=== PATIENT | male | born 1955 | race Caucasian/White ===

== ENCOUNTER 2019-07-02 15:22 | Inpatient (IN) ==
[2019-07-02 17:24] LABS: Basophils # 0.1 K/mcL (0.0-0.2); Basophils % 0.7 %; Eosinophils # 0.3 K/mcL (0.0-0.6); Eosinophils % 3.3 %; Hematocrit 38.1 % (37.5-50.1); Hemoglobin 12.8 g/dL (12.9-16.9); Immature Granulocytes % 0.3 % (0-4); Lymphocytes # 1.3 K/mcL (0.6-4.6); Lymphocytes % 14.6 %; Mean Corpuscular HGB Conc 33.6 g/dL (31.6-35.5); Mean Corpuscular Hemoglobin 30.5 pg (28.0-33.3); Mean Corpuscular Volume 90.9 fL (83.0-100.0); Mean Platelet Volume 9.7 fL (9.4-12.4); Monocytes # 0.6 K/mcL (0.0-1.3); Monocytes % 6.6 %; Neutrophils # 6.5 K/mcL (1.6-8.9); Platelet Count 273 K/mcL (140-400); Red Blood Count 4.19 M/mcL (4.19-5.50); Red Cell Distribution Width 14.3 % (11.5-14.5); Segmented Neutrophils % 74.5 %; White Blood Count 8.7 K/mcL (4.3-11.1)
[2019-07-02] MEDS ORDERED: Naloxone 0.4 MG/ML INJ IVP PRN (17:42)
[2019-07-02 17:45] LABS: Albumin/Globulin Ratio 1.4 (1.1-2.2); Bilirubin,Total 0.4 mg/dL (0.3-1.0); Calcium 9.2 mg/dL (8.6-10.3); Globulin 2.9 g/dL (2.4-3.5); Potassium 4.7 mEq/L (3.5-5.1); Total Protein 6.9 g/dL (6.4-8.9)
[2019-07-02] MEDS ORDERED: hydrOXYzine pamoate 25 MG CAPSULE PO PRN (18:08)
[2019-07-02] MEDS: *HR* Heparin 5,000 UNIT/ML VIAL SQ SCH (19:39)
[2019-07-02] MEDS: Gabapentin 300 MG CAPSULE PO SCH (21:23)
[2019-07-02] MEDS: *HR* OxyCODONE/APAP 5/325 TABLET PO PRN (21:46)
[2019-07-02] MEDS: Lisinopril 20 MG TABLET PO SCH (21:46)
[2019-07-03] MEDS: *HR* Heparin 5,000 UNIT/ML VIAL SQ SCH ×2 (06:04→17:38)
[2019-07-03] MEDS: *HR* OxyCODONE/APAP 5/325 TABLET PO PRN ×3 (06:04→18:46)
[2019-07-03 07:01] LABS: Basophils # 0.1 K/mcL (0.0-0.2); Basophils % 0.8 %; Eosinophils # 0.2 K/mcL (0.0-0.6); Eosinophils % 3.2 %; Hematocrit 34.7 % (37.5-50.1); Hemoglobin 11.7 g/dL (12.9-16.9); Immature Granulocytes % 0.3 % (0-4); Lymphocytes # 1.8 K/mcL (0.6-4.6); Lymphocytes % 24.3 %; Mean Corpuscular HGB Conc 33.7 g/dL (31.6-35.5); Mean Corpuscular Hemoglobin 30.1 pg (28.0-33.3); Mean Corpuscular Volume 89.2 fL (83.0-100.0); Mean Platelet Volume 9.8 fL (9.4-12.4); Monocytes % 12.7 %; Neutrophils # 4.4 K/mcL (1.6-8.9); Platelet Count 257 K/mcL (140-400); Red Blood Count 3.89 M/mcL (4.19-5.50); Red Cell Distribution Width 14.1 % (11.5-14.5); Segmented Neutrophils % 58.7 %; White Blood Count 7.5 K/mcL (4.3-11.1)
[2019-07-03 07:29] LABS: Calcium 8.7 mg/dL (8.6-10.3); Potassium 4.3 mEq/L (3.5-5.1)
[2019-07-03] MEDS: Gabapentin 300 MG CAPSULE PO SCH ×3 (08:28→21:24)
[2019-07-03] MEDS: hydroCHLOROthiazide 25 MG TABLET PO SCH (08:30)
[2019-07-03] MEDS: Loratadine 10 MG TABLET PO SCH (08:30)
[2019-07-03] MEDS: Aspirin Enteric Coated 81 MG Tablet PO SCH (08:30)
[2019-07-03] MEDS: Lisinopril 20 MG TABLET PO SCH ×2 (08:30→21:24)
[2019-07-03] MEDS: Cyanocobalamin (B-12) 1,000 MCG TABLET PO SCH (08:31)
[2019-07-03] MEDS: amLODIPine 5 MG TABLET PO SCH (11:46)
[2019-07-03] MEDS: BuPROPion XL (24 HR) 150 MG TABLET PO SCH (17:38)
[2019-07-03] MEDS: traZODone 50 MG TABLET PO PRN (21:24)
[2019-07-04] MEDS: *HR* OxyCODONE/APAP 5/325 TABLET PO PRN ×4 (01:35→21:31)
[2019-07-04 04:10] LABS: Hematocrit 33.8 % (37.5-50.1); Hemoglobin 11.5 g/dL (12.9-16.9); Mean Corpuscular Hemoglobin 30.5 pg (28.0-33.3); Mean Corpuscular Volume 89.7 fL (83.0-100.0); Platelet Count 231 K/mcL (140-400); Red Blood Count 3.77 M/mcL (4.19-5.50); Red Cell Distribution Width 13.8 % (11.5-14.5); White Blood Count 8.1 K/mcL (4.3-11.1)
[2019-07-04 04:16] LABS: BUN/Creatinine Ratio 19 (6-26); Blood Urea Nitrogen 25 mg/dL (8-23); Calcium 8.5 mg/dL (8.6-10.3); Carbon Dioxide 22 mEq/L (23-29); Chloride 105 mEq/L (98-107); Glucose 111 mg/dL (70-105); Osmolality,Calculated 287 (280-300); Sodium 136 mEq/L (136-145); eGFR For African Americans > 60 (> 60); eGFR For Non-African Americans 56 (> 60)
[2019-07-04] MEDS: *HR* Heparin 5,000 UNIT/ML VIAL SQ SCH ×2 (06:38→17:25)
[2019-07-04] MEDS: Lisinopril 20 MG TABLET PO SCH ×2 (09:43→20:57)
[2019-07-04] MEDS: hydroCHLOROthiazide 25 MG TABLET PO SCH (09:44)
[2019-07-04] MEDS: Gabapentin 300 MG CAPSULE PO SCH ×3 (09:44→20:58)
[2019-07-04] MEDS: Cyanocobalamin (B-12) 1,000 MCG TABLET PO SCH (09:44)
[2019-07-04] MEDS: Aspirin Enteric Coated 81 MG Tablet PO SCH (09:44)
[2019-07-04] MEDS: Loratadine 10 MG TABLET PO SCH (09:44)
[2019-07-04] MEDS: amLODIPine 5 MG TABLET PO SCH (09:44)
[2019-07-04] MEDS: BuPROPion XL (24 HR) 150 MG TABLET PO SCH ×2 (09:45→17:27)
[2019-07-04] MEDS: traZODone 50 MG TABLET PO PRN (20:58)
[2019-07-05] MEDS ORDERED: 0.9 % Sodium Chloride 500 ML IV ONE (00:11)
[2019-07-05] MEDS ORDERED: 0.9 % Sodium Chloride 500 ML IVC ONE (02:29)
[2019-07-05] MEDS ORDERED: Acetaminophen 325 MG TABLET PO PRN (04:01)
[2019-07-05] MEDS: *HR* Heparin 5,000 UNIT/ML VIAL SQ SCH ×2 (05:10→17:20)
[2019-07-05 05:46] LABS: Calcium 8.3 mg/dL (8.6-10.3); Potassium 4.1 mEq/L (3.5-5.1)
[2019-07-05] MEDS: Lisinopril 20 MG TABLET PO SCH ×2 (09:13→21:27)
[2019-07-05] MEDS: Aspirin Enteric Coated 81 MG Tablet PO SCH (09:14)
[2019-07-05] MEDS: Gabapentin 300 MG CAPSULE PO SCH ×3 (09:14→21:26)
[2019-07-05] MEDS: Cyanocobalamin (B-12) 1,000 MCG TABLET PO SCH (09:14)
[2019-07-05] MEDS: Loratadine 10 MG TABLET PO SCH (09:14)
[2019-07-05] MEDS: BuPROPion XL (24 HR) 150 MG TABLET PO SCH ×2 (09:15→17:20)
[2019-07-05] MEDS: amLODIPine 5 MG TABLET PO SCH (09:15)
[2019-07-05] MEDS: hydroCHLOROthiazide 25 MG TABLET PO SCH (09:15)
[2019-07-05] MEDS: *HR* OxyCODONE/APAP 5/325 TABLET PO PRN ×2 (12:08→21:26)
[2019-07-06] MEDS: traZODone 50 MG TABLET PO PRN (00:31)
[2019-07-06] MEDS: *HR* Heparin 5,000 UNIT/ML VIAL SQ SCH ×2 (05:20→15:44)
[2019-07-06 07:09] LABS: BUN/Creatinine Ratio 27 (6-26); Blood Urea Nitrogen 37 mg/dL (8-23); Calcium 8.5 mg/dL (8.6-10.3); Carbon Dioxide 23 mEq/L (23-29); Chloride 102 mEq/L (98-107); Glucose 82 mg/dL (70-105); Osmolality,Calculated 292 (280-300); Sodium 137 mEq/L (136-145); eGFR For African Americans > 60 (> 60); eGFR For Non-African Americans 53 (> 60)
[2019-07-06] MEDS: Aspirin Enteric Coated 81 MG Tablet PO SCH (09:39)
[2019-07-06] MEDS: hydroCHLOROthiazide 25 MG TABLET PO SCH (09:39)
[2019-07-06] MEDS: Loratadine 10 MG TABLET PO SCH (09:39)
[2019-07-06] MEDS: Cyanocobalamin (B-12) 1,000 MCG TABLET PO SCH (09:40)
[2019-07-06] MEDS: BuPROPion XL (24 HR) 150 MG TABLET PO SCH ×2 (09:40→18:45)
[2019-07-06] MEDS: Gabapentin 300 MG CAPSULE PO SCH ×3 (09:40→21:35)
[2019-07-06] MEDS: amLODIPine 5 MG TABLET PO SCH (09:40)
[2019-07-06] MEDS: Lisinopril 20 MG TABLET PO SCH (09:40)
[2019-07-06] MEDS: *HR* OxyCODONE/APAP 5/325 TABLET PO PRN ×2 (09:45→19:34)
[2019-07-07] MEDS: traZODone 50 MG TABLET PO PRN (01:12)
[2019-07-07 05:01] LABS: Hematocrit 33.8 % (37.5-50.1); Hemoglobin 11.4 g/dL (12.9-16.9); Mean Corpuscular HGB Conc 33.7 g/dL (31.6-35.5); Mean Corpuscular Hemoglobin 30.3 pg (28.0-33.3); Mean Corpuscular Volume 89.9 fL (83.0-100.0); Mean Platelet Volume 9.6 fL (9.4-12.4); Platelet Count 250 K/mcL (140-400); Red Blood Count 3.76 M/mcL (4.19-5.50); Red Cell Distribution Width 13.8 % (11.5-14.5); White Blood Count 7.6 K/mcL (4.3-11.1)
[2019-07-07 05:25] LABS: BUN/Creatinine Ratio 32 (6-26); Blood Urea Nitrogen 46 mg/dL (8-23); Calcium 8.6 mg/dL (8.6-10.3); Carbon Dioxide 22 mEq/L (23-29); Chloride 105 mEq/L (98-107); Glucose 89 mg/dL (70-105); Osmolality,Calculated 303 (280-300); Potassium 4.3 mEq/L (3.5-5.1); Sodium 141 mEq/L (136-145); eGFR For African Americans > 60 (> 60); eGFR For Non-African Americans 50 (> 60)
[2019-07-07] MEDS: *HR* Heparin 5,000 UNIT/ML VIAL SQ SCH (05:25)
[2019-07-07] MEDS: *HR* OxyCODONE/APAP 5/325 TABLET PO PRN ×2 (05:30→11:42)
[2019-07-07] MEDS: hydroCHLOROthiazide 25 MG TABLET PO SCH (08:39)
[2019-07-07] MEDS: Cyanocobalamin (B-12) 1,000 MCG TABLET PO SCH (08:39)
[2019-07-07] MEDS: Gabapentin 300 MG CAPSULE PO SCH (08:39)
[2019-07-07] MEDS: Aspirin Enteric Coated 81 MG Tablet PO SCH (08:39)
[2019-07-07] MEDS: BuPROPion XL (24 HR) 150 MG TABLET PO SCH (08:39)
[2019-07-07] MEDS: amLODIPine 5 MG TABLET PO SCH (08:40)
[2019-07-07] MEDS: Loratadine 10 MG TABLET PO SCH (08:40)
[2019-07-07] MEDS ORDERED: Lisinopril 20 MG TABLET PO SCH (09:00)
[2019-07-07 11:10] VITALS: BP 103/70
[2019-07-07] MEDS ORDERED: *HR* OxyCODONE/APAP 5/325 TABLET PO PRN (13:54)
== END 2019-07-07 16:53 | DRG 563 ==
LOC: 2NENU 15:22 → EMEROOARM 15:22 → SUATTDRO 18:22 → 2NENU 19:46
PROVIDERS: ADMIT Internal Medicine; ATTEND Internal Medicine

== ENCOUNTER 2022-01-16 18:48 | Inpatient (IN) ==
[2022-01-16 20:48] LABS: Basophils % 0.6 %; Eosinophils # 0.3 K/mcL (0.0-0.6); Eosinophils % 4.3 %; Hematocrit 33.2 % (37.5-50.1); Hemoglobin 10.4 g/dL (12.9-16.9); Immature Granulocytes % 0.2 % (0-4); Lymphocytes # 2.4 K/mcL (0.6-4.6); Lymphocytes % 36.2 %; Mean Corpuscular HGB Conc 31.3 g/dL (31.6-35.5); Mean Corpuscular Hemoglobin 28.7 pg (28.0-33.3); Mean Corpuscular Volume 91.5 fL (83.0-100.0); Mean Platelet Volume 9.6 fL (9.4-12.4); Monocytes # 0.9 K/mcL (0.0-1.3); Monocytes % 13.7 %; Platelet Count 193 K/mcL (140-400); Red Blood Count 3.63 M/mcL (4.19-5.50); Red Cell Distribution Width 15.9 % (11.5-14.5); White Blood Count 6.6 K/mcL (4.3-11.1)
[2022-01-16 21:08] LABS: BUN/Creatinine Ratio 15 (6-26); Blood Urea Nitrogen 18 mg/dL (8-23); Calcium 8.7 mg/dL (8.6-10.3); Carbon Dioxide 21 mEq/L (23-29); Chloride 110 mEq/L (98-107); Glucose 82 mg/dL (70-105); Osmolality,Calculated 287 (280-300); Potassium 4.1 mEq/L (3.5-5.1); Sodium 138 mEq/L (136-145); Troponin I < 0.03 ng/mL (< 0.04); eGFR For African Americans > 60 (> 60); eGFR For Non-African Americans 59 (> 60)
[2022-01-16 21:12] LABS: Platelet Estimate Normal (Normal); Reactive Lymphocytes Present (Not Present)
[2022-01-16 21:15] LABS: Alanine Aminotransferase 12 Units/L (7-52); Albumin 3.9 g/dL (3.5-5.7); Albumin/Globulin Ratio 1.5 (1.1-2.2); Alkaline Phosphatase 94 Units/L (34-104); Aspartate Amino Transferase 22 Units/L (13-39); Bilirubin,Direct 0.1 mg/dL (0.0-0.2); Bilirubin,Indirect 0.3 mg/dL (0.0-1.0); Bilirubin,Total 0.4 mg/dL (0.3-1.0); Globulin 2.6 g/dL (2.4-3.5); Lipase 18 Units/L (11-82); Total Protein 6.5 g/dL (6.4-8.9)
[2022-01-16 21:56] LABS: Magnesium 1.8 mg/dL (1.6-2.6)
[2022-01-16] MEDS ORDERED: Lidocaine 1% 20 ML MDV INFILT ONE (22:06)
[2022-01-16 22:09] LABS: Thyroid Stimulating Hormone 10.063 mcIU/mL (0.340-5.600)
[2022-01-17] MEDS ORDERED: Furosemide 20 MG/2 ML VIAL IVP ONE (00:19)
[2022-01-17] MEDS ORDERED: *HR* Heparin 5,000 UNIT/ML VIAL IVP PRN ×2 (01:53)
[2022-01-17] MEDS ORDERED: *HR* Heparin 5,000 UNIT/ML VIAL IVP ONE (01:53)
[2022-01-17] MEDS ORDERED: Heparin 25,000UNIT/250ML 1/2NS 25,000 UNIT/250 ML IV.SOLN IVC SCH (02:00)
[2022-01-17 02:03] LABS: Adenovirus Not Detected (Not Detect); Bordetella Pertussis Not Detected (Not Detect); Chlamydophila pneumoniae Not Detected (Not Detect); Coronavirus 229E Not Detected (Not Detect); Coronavirus HKU1 Not Detected (Not Detect); Coronavirus NL63 Not Detected (Not Detect); Coronavirus OC43 Not Detected (Not Detect); Human Metapneumovirus Not Detected (Not Detect); Human Rhinovirus/Enterovirus Not Detected (Not Detect); Influenza A Subtype 2009 H1 Not Detected (Not Detect); Influenza B Not Detected (Not Detect); Mycoplasma pneumoniae Not Detected (Not Detect); Parainfluenza Virus 1 Not Detected (Not Detect); Parainfluenza Virus 2 Not Detected (Not Detect); Parainfluenza Virus 3 Not Detected (Not Detect); Parainfluenza Virus 4 Not Detected (Not Detect); Respiratory Syncytial Virus Not Detected (Not Detect); SARS-CoV-2 Not Detected (Not Detect)
[2022-01-17] MEDS ORDERED: Ondansetron 4 MG/2 ML VIAL IVP PRN (02:06)
[2022-01-17] MEDS ORDERED: Naloxone 0.4 MG/ML INJ IVP PRN (02:06)
[2022-01-17] MEDS ORDERED: Perflutren Lipid Microsphere 1.3 ML in 0.9 % Sodium Chloride 8.7 ML IVP PRN (02:22)
[2022-01-17] MEDS: Acetaminophen 325 MG TABLET PO PRN (03:54)
[2022-01-17 04:30] LABS: Bilirubin,Urine Negative (Negative); Blood,Urine Negative (Negative); Clarity,Urine Clear (Clear); Color,Urine Colorless (Yellow); Glucose,Urine (UA) Normal (Normal); Ketones,Urine Negative (Negative); Leukocyte Esterase,Urine Negative (Negative); Nitrite,Urine Negative (Negative); Protein,Urine Negative (Neg-Trace); Specific Gravity,Urine 1.007 (1.010-1.025); Urobilinogen,Urine Normal (Normal)
[2022-01-17 06:03] LABS: Hematocrit 34.6 % (37.5-50.1); Hemoglobin 10.8 g/dL (12.9-16.9); Mean Corpuscular HGB Conc 31.2 g/dL (31.6-35.5); Mean Corpuscular Hemoglobin 28.4 pg (28.0-33.3); Mean Corpuscular Volume 91.1 fL (83.0-100.0); Mean Platelet Volume 10.1 fL (9.4-12.4); Platelet Count 208 K/mcL (140-400); Red Cell Distribution Width 15.9 % (11.5-14.5); White Blood Count 9.4 K/mcL (4.3-11.1)
[2022-01-17 07:22] LABS: Estimated Average Glucose 123 mg/dl; Hemoglobin A1C 5.9 %
[2022-01-17 07:51] LABS: BUN/Creatinine Ratio 14 (6-26); Blood Urea Nitrogen 18 mg/dL (8-23); Calcium 8.8 mg/dL (8.6-10.3); Carbon Dioxide 20 mEq/L (23-29); Chloride 108 mEq/L (98-107); Chol/HDL Ratio 2.7 (0-4.9); Cholesterol 127 mg/dL (< 200); Glucose 148 mg/dL (70-105); HDL Cholesterol 47 mg/dL (40-59); LDL Cholesterol,Calculated 71 mg/dL (< 100); Osmolality,Calculated 293 (280-300); Potassium 3.5 mEq/L (3.5-5.1); Sodium 139 mEq/L (136-145); Triglycerides 44 mg/dL (< 150); eGFR For African Americans > 60 (> 60); eGFR For Non-African Americans 56 (> 60)
[2022-01-17 08:02] LABS: % Iron Saturation 10 % (20-55); Ferritin 20 ng/mL (20-250); Iron 40 mcg/dL (65-175); Transferrin 277 mg/dL (203-362)
[2022-01-17] MEDS: Metoprolol XL (24 HR) Succ 25 MG TAB.ER.24H PO SCH (08:13)
[2022-01-17] MEDS: Furosemide 20 MG/2 ML VIAL IVP SCH ×2 (08:13→16:24)
[2022-01-17] MEDS: *HR* Enoxaparin 120 MG/0.8 ML SYRINGE SQ SCH ×2 (08:21→17:30)
[2022-01-17 09:49] LABS: Folate 20.4 ng/mL (3.0-16.0)
[2022-01-17 09:51] LABS: Heparin anti-factor XA UFH 0.81 IU/mL (0.30-0.70); INR 1.2; Prothrombin Time 13.5 Seconds (9.4-12.1)
[2022-01-17 09:53] LABS: Activated Partial Thrombo Time 89.9 Seconds (26.0-36.0)
[2022-01-17] MEDS: Gabapentin 300 MG CAPSULE PO SCH ×3 (12:45→20:02)
[2022-01-17] MEDS: *HR* OxyCODONE/APAP 7.5/325 TABLET PO PRN ×2 (12:50→21:51)
[2022-01-17] MEDS ORDERED: BuPROPion XL (24 HR) 150 MG TABLET PO SCH (23:45)
[2022-01-18] MEDS: traZODone 50 MG TABLET PO PRN ×2 (00:36→20:57)
[2022-01-18 03:20] LABS: Hematocrit 32.5 % (37.5-50.1); Hemoglobin 10.6 g/dL (12.9-16.9); Mean Corpuscular HGB Conc 32.6 g/dL (31.6-35.5); Mean Platelet Volume 10.1 fL (9.4-12.4); Platelet Count 210 K/mcL (140-400); Red Blood Count 3.65 M/mcL (4.19-5.50); Red Cell Distribution Width 15.3 % (11.5-14.5); White Blood Count 7.5 K/mcL (4.3-11.1)
[2022-01-18 03:37] LABS: BUN/Creatinine Ratio 16 (6-26); Blood Urea Nitrogen 21 mg/dL (8-23); Calcium 8.5 mg/dL (8.6-10.3); Carbon Dioxide 26 mEq/L (23-29); Chloride 107 mEq/L (98-107); Glucose 90 mg/dL (70-105); Osmolality,Calculated 293 (280-300); Potassium 3.6 mEq/L (3.5-5.1); Sodium 140 mEq/L (136-145); eGFR For African Americans > 60 (> 60); eGFR For Non-African Americans 56 (> 60)
[2022-01-18] MEDS: *HR* Enoxaparin 120 MG/0.8 ML SYRINGE SQ SCH ×2 (06:36→19:52)
[2022-01-18] MEDS: Gabapentin 300 MG CAPSULE PO SCH ×3 (08:26→20:57)
[2022-01-18] MEDS: Loratadine 10 MG TABLET PO SCH (08:27)
[2022-01-18] MEDS: Metoprolol XL (24 HR) Succ 25 MG TAB.ER.24H PO SCH (08:27)
[2022-01-18] MEDS: Aspirin Enteric Coated 81 MG Tablet PO SCH (08:27)
[2022-01-18] MEDS: Cholecalciferol (D-3) 1,000 UNIT (25MCG) TABLET PO SCH (08:28)
[2022-01-18] MEDS: Furosemide 20 MG TABLET PO SCH (08:39)
[2022-01-18] MEDS: *HR* OxyCODONE/APAP 7.5/325 TABLET PO PRN ×2 (08:49→20:57)
[2022-01-18] MEDS ORDERED: BuPROPion XL (24 HR) 150 MG TABLET PO SCH (09:00)
[2022-01-18] MEDS ORDERED: Heparin 1,000 UNITS/500 mL 500 ML ONE ×2 (10:58→12:09)
[2022-01-18] MEDS ORDERED: Nitroglycerin 1,000 MCG/5 ML VIAL IV ONE (10:58)
[2022-01-18] MEDS ORDERED: Iopamidol - 370 200 ML INFUS..BTL ONE (10:58)
[2022-01-18] MEDS ORDERED: 0.9 % Sodium Chloride 1,000 ML ONE ×2 (10:58→11:01)
[2022-01-18] MEDS ORDERED: *HR* Heparin 10,000 UNIT/10 ML VIAL ONE ×2 (10:58→11:51)
[2022-01-18] MEDS ORDERED: *HR* Midazolam HCl 2 MG/2 ML VIAL ONE (11:13)
[2022-01-18] MEDS ORDERED: *HR* FentaNYL (PF) 100 MCG/2 ML VIAL ONE (11:13)
[2022-01-18] MEDS ORDERED: *HR* Ticagrelor 90 MG TABLET ONE (11:50)
[2022-01-18] MEDS ORDERED: niCARdipine 20 MG/200 ML MLS IVC ONE (12:29)
[2022-01-18] MEDS: Acetaminophen 325 MG TABLET PO PRN (13:28)
[2022-01-18] MEDS: 0.9 % Sodium Chloride 500 ML IVC SCH (13:50)
[2022-01-19] MEDS: 0.9 % Sodium Chloride 500 ML IVC SCH (03:28)
[2022-01-19 03:51] LABS: Hematocrit 31.8 % (37.5-50.1); Hemoglobin 10.3 g/dL (12.9-16.9)
[2022-01-19 04:08] LABS: BUN/Creatinine Ratio 16 (6-26); Blood Urea Nitrogen 22 mg/dL (8-23); Magnesium 1.8 mg/dL (1.6-2.6); Potassium 3.9 mEq/L (3.5-5.1); eGFR For African Americans > 60 (> 60); eGFR For Non-African Americans 52 (> 60)
[2022-01-19 05:00] VITALS: O2SAT 96
[2022-01-19] MEDS: *HR* Enoxaparin 120 MG/0.8 ML SYRINGE SQ SCH (05:40)
[2022-01-19] MEDS: Cholecalciferol (D-3) 1,000 UNIT (25MCG) TABLET PO SCH (09:30)
[2022-01-19] MEDS: Metoprolol XL (24 HR) Succ 25 MG TAB.ER.24H PO SCH (09:31)
[2022-01-19] MEDS: Aspirin Enteric Coated 81 MG Tablet PO SCH (09:31)
[2022-01-19] MEDS: Furosemide 20 MG TABLET PO SCH (09:31)
[2022-01-19] MEDS: Gabapentin 300 MG CAPSULE PO SCH (09:31)
[2022-01-19] MEDS: Loratadine 10 MG TABLET PO SCH (09:31)
[2022-01-19 11:18] VITALS: BP 114/76; PULSE 82; TEMP 98.2
== END 2022-01-19 13:42 | disposition home or self-care (01) | DRG 246 ==
LOC: EMEROOARM 18:48 → 3ANU 18:48 → SUATTDRO 01-17 02:02 → 3ANU 01-17 03:00
PROVIDERS: ADMIT Student in an Organized Health Care Education/Training Program; ATTEND Internal Medicine